=== PATIENT | male | born 1985 | race Caucasian/White ===

== ENCOUNTER → 2016-12-12 | Emergency (ER) | payer SELFPAY ==
[~2016-12-12] VITALS: Ht 175.3 cm; Wt 77.1 kg
[~2016-12-12] MED LIST: IBUPROFEN400 MG ORAL; MULTIVITAMINS1 EAC2 ORAL; NKM
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
[2016-12-12 20:56] VITALS: BP 160/98
== END | disposition home or self-care (01) ==
LOC: EMR 21:00
DX: R20.0 Anesthesia of skin (principal); M54.16 Radiculopathy, lumbar region; M54.12 Radiculopathy, cervical region; Z88.8 Allergy status to other drugs, medicaments and biological substances
CPT/HCPCS: 99284

== ENCOUNTER 2016-12-13 23:58 | Emergency (ER) | payer SELFPAY ==
[~2016-12-13] VITALS: Ht 175.3 cm; Wt 72.6 kg
[2016-12-14 00:40] VITALS: BP 140/89
[2016-12-14 00:43] VITALS: BP 140/89
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
== END 2016-12-14 00:43 | disposition home or self-care (01) ==
LOC: EMR 12-14 00:40
DX: F10.129 Alcohol abuse with intoxication, unspecified (principal); R20.2 Paresthesia of skin
CPT/HCPCS: 99281